=== PATIENT | male | born 1995 | race Caucasian/White ===

== ENCOUNTER 2024-10-04 13:33 | Emergency (ER) | payer SELFPAY ==
[~2024-10-04] VITALS: Ht 195.6 cm; Wt 100.4 kg
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
[2024-10-04] MEDS ORDERED: CIPR-173 PO (15:20)
[2024-10-04] MEDS ORDERED: NEOM-48 EX (15:20)
[2024-10-04] MEDS ORDERED: CHL12OR MT (15:21)
[2024-10-04] MEDS: NEOMYCIN-BACITRACIN-POLYM UNITDOSE PKG TOP OINT TOP ONE (15:22)
[2024-10-04] MEDS: LIDOCAINE W/ EPINEPHRINE 1% 20ML VIAL ID ONE (15:22)
[2024-10-04] MEDS: LIDOCAINE VISCOUS 2% 15ML UD MT ONE (15:22)
[2024-10-04 15:30] VITALS: BP 151/82; PULSE 86; RESP 17; TEMP 98.1; O2SAT 98
== END 2024-10-04 15:49 | disposition home or self-care (01) ==
LOC: ER 13:33
DX: S01.511A Laceration without foreign body of lip, initial encounter (principal); S01.81XA Laceration without foreign body of other part of head, initial encounter; W19.XXXA Unspecified fall, initial encounter; Y93.89 Activity, other specified; Y92.89 Other specified places as the place of occurrence of the external cause; Y99.8 Other external cause status
CPT/HCPCS: 12011